=== PATIENT | female | born 1940 | race Caucasian/White ===

== ENCOUNTER 2018-10-17 14:41 | Emergency (ER) ==
[2018-10-17 14:55] VITALS: BP 112/62; TEMP 99.7; BMI 26.2
--- NOTE | 2018-10-17 15:48 | CT ---
EXAM: CT of the chest without contrast History: Cough. Comparison: CT abdomen pelvis 10/17/2018. Technique: Multiplanar CT images through the thorax were obtained without the administration of IV c ontrast Findings: Heart size is normal. No pericardial effusion. No thoracic aortic aneurysm. No patholog ically enlarged thoracic lymph nodes. Diffuse bronchial wall thickening. Bilateral lower lung micro nodules with tree-in-bud configuration. 3.6 cm irregular area of consolidation within the right lowe r lobe and smaller irregular area of consolidation within the right middle lobe. These areas of cons olidation appear to contain foci of fat. No pleural fluid and no pneumothorax. For details in the upper abdomen, please see dedicated CT abdomen pelvis done on the same day. [place] lithiasis is present and there are bilateral renal calculi and mild left hydronephrosis. No acute os seous abnormalities. Scoliosis. Degenerative changes of the spine and bilateral glenohumeral joints . Impression: 1. Irregular areas of consolidation within the right lower lobe and right middle lobe with areas of fat density suspicious for lipoid pneumonia. Follow-up chest CT is recommended in 3-6 months after t reatment to assure resolution. 2. Bilateral micronodules with tree-in-bud configuration compatible with infectious or inflammatory process. Close attention to on follow-up recommended
--- NOTE | 2018-10-17 15:58 | CT ---
Exam: CT abdomen pelvis without intravenous contrast. Comparison: None available. Reason for exam: Pain. FINDINGS: 2.4 cm right perihilar nodularity with a 1 cm nodule in the right lower lobe and a 5 mm no dule in the left lower lobe in the partially imaged lung bases. Please see CT examination of the ingrid st performed on the same day for further characterization. No pleural effusion. The liver has an ab normally lobulated contour. Old granulomas disease is seen within the spleen. Multiple stones are seen within the gallbladder. There is moderate left-sided hydronephrosis and hydroureter. Multiple stones are seen in the left re nal parenchyma measuring up to 8 mm. Mild atrophy of the right kidney without evidence of hydronephrosis or hydroureter. There is mild th ickening of the bladder wall, left more so than right. No focal small bowel dilatation or transition point. Diverticular disease is seen in the descending and rectosigmoid colon. There is marked degenerative disease of the thoracolumbar spine with intervertebral body disc space h eight loss and osteophyte formation with facet hypertrophy. Impression: 1. Multiple nodules are seen within the partially imaged lung parenchyma and perihilar region. Plea se see CT examination of the chest performed on the same day for further characterization. 2. Irregularly marginated bladder wall thickening. Imaging findings can be seen with inflammation, infection and neoplasia. Further evaluation is recommended. 3. Left-sided hydronephrosis and hydroureter. Recommend further evaluation. 4. Left-sided nephrolithiasis measuring up to 8 mm. 5. Cholelithiasis and diverticulosis. 6. Marked degenerative findings in the thoracolumbar spine
--- NOTE | 2018-10-17 16:25 | ED.PDOC ---
General ED Provider: Dr. UMANG REINOSO Chief Complaint: Nausea/Vomiting Stated Complaint: vomiting , diarrhea Time Seen by Physician: 15:00 Mode of Arrival: Ambulance Information Source: Patient Exam Limitations: No limitations Primary Care Provider: MAVERICK BUNCH Nursing and Triage Documentation Reviewed and Agree: Yes Does patient meet sepsis criteria?: No If yes, has appropriate treatment been initiated?: No System Inflammatory Response Syndrome: Not Applicable Sepsis Protocol: For patient's 13 years and over: Temp is 96.8 and below OR 101 and greater Pulse >90 BPM Resp >20/minute Acutely Altered Mental Status Are patient's symptoms suggestive of a new infection, such as: -Pneumonia -Skin, Soft Tissue -Endocarditis -UTI -Bone, Joint Infection -Implantable Device -Acute Abdominal Infection -Wound Infection -Meningitis -Blood Stream Catheter Infection -Unknown GI Complaint Exam - Vomiting/Diarrhea Complaint/Exam Onset/Duration: today Symptoms Are: Resolved Episodes of Vomiting over last 24 Hours: 1 Episodes of Diarrhea Over Last 24 Hours: 2 Initial Severity: Mild Current Severity: None Character of Vomiting: Reports: Non-bilious Aggravating: Reports: None Alleviating: Reports: None Associated Signs and Symptoms: Denies: Dizziness, Light-headedness, Melena, Hematemesis, Fever, Abdominal pain, Cramping Surgical Obstruction Risk Factors: Reports: None Related Surgical History: Reports: None Abdominal Findings: Present: None Review of Systems - Review Of Systems Constitutional: Reports: No symptoms Eyes: Reports: No symptoms Ears, Nose, Mouth, Throat: Reports: No symptoms Respiratory: Reports: No symptoms Cardiac: Reports: No symptoms GI: Reports: Diarrhea, Vomiting : Reports: No symptoms Musculoskeletal: Reports: No symptoms Skin: Reports: No symptoms Neurological: Reports: No symptoms Endocrine: Reports: No symptoms Hematologic/Lymphatic: Reports: No symptoms All Other Systems: Reviewed and Negative Past Medical History - Past Medical History Previously Healthy: Yes Endocrine: Reports: None Cardiovascular: Reports: None Respiratory: Reports: None Hematological: Reports: None Gastrointestinal: Reports: None Genitourinary: Reports: None Neuro/Psych: Reports: None Musculoskeletal: Reports: None Cancer: Reports: None Last Menstrual Period: n/a - Surgical History General Surgical History: Reports: None - Family History Family History: Reports: None - Social History Smoking Status: Never smoker Hx Substance Use: No Alcohol Screening: None Physical Exam - Physical Exam Appearance: Well-appearing, No pain distress, Well-nourished Eyes: JAMSHID, EOMI, Conjunctiva clear ENT: Ears normal, Nose normal, Oropharynx normal Respiratory: Airway patent, Breath sounds clear, Breath sounds equal, Respirations nonlabored Cardiovascular: RRR, Pulses normal, No rub, No murmur GI/: Soft, Nontender, No masses, Bowel sounds normal, No Organomegaly Musculoskeletal: Normal strength, ROM intact, No edema, No calf tenderness Skin: Warm, Dry, Normal color Neurological: Sensation intact, Motor intact, Reflexes intact, Cranial nerves intact, Alert, Oriented Psychiatric: Affect appropriate, Mood appropriate Critical Care Note - Critical Care Note Total Time (mins): 0 Course - Course Hematology/Chemistry: 10/17/18 15:14 10/17/18 15:14 Orders, Labs, Meds: Lab Review 10/17/18 10/17/18 10/17/18 15:00 15:14 15:14 WBC 13.87 H RBC 5.13 Hgb 14.6 Hct 47.1 H MCV 91.8 MCH 28.5 MCHC 31.0 L RDW Coeff of Nayely 13.7 Plt Count 207 Immature Gran % (Auto) 0.3 Neut % (Auto) 92.7 Lymph % (Auto) 1.9 L [place] % (Auto) 4.3 Eos % (Auto) 0.5 Baso % (Auto) 0.3 Immature Gran # (Auto) 0.0 Neut # (Auto) 12.9 H Lymph # (Auto) 0.3 L [place] # (Auto) 0.6 Eos # (Auto) 0.1 Baso # (Auto) 0.0 Sodium 138.1 Potassium 4.33 Chloride 106.6 Carbon Dioxide 20.6 L Anion Gap 15.23 BUN 25.8 H Creatinine 1.20 Estimated GFR (MDRD) 43.00 BUN/Creatinine Ratio 21.50 Glucose 123.0 H Lactic Acid Calcium 9.17 Total Bilirubin 0.55 AST 24.3 ALT 17.8 Alkaline Phosphatase 105.2 Total Protein 6.96 Albumin 4.18 Globulin 2.78 Albumin/Globulin Ratio 1.50 Amylase 102.4 Lipase 101.5 Procalcitonin Influ A Molecular Assay Negative by naat Influ B Molecular Assay Negative by naat 10/17/18 10/17/18 15:14 15:14 WBC RBC Hgb Hct MCV MCH MCHC RDW Coeff of Nayely Plt Count Immature Gran % (Auto) Neut % (Auto) Lymph % (Auto) [place] % (Auto) Eos % (Auto) Baso % (Auto) Immature Gran # (Auto) Neut # (Auto) Lymph # (Auto) [place] # (Auto) Eos # (Auto) Baso # (Auto) Sodium Potassium Chloride Carbon Dioxide Anion Gap BUN Creatinine Estimated GFR (MDRD) BUN/Creatinine Ratio Glucose Lactic Acid 1.24 Calcium Total Bilirubin AST ALT Alkaline Phosphatase Total Protein Albumin Globulin Albumin/Globulin Ratio Amylase Lipase Procalcitonin 0.07 Influ A Molecular Assay Influ B Molecular Assay Orders Category Date Time Status EKG-(ED ONLY) Stat CARDIO 10/17/18 14:49 Completed AMYLASE Stat LAB 10/17/18 15:14 Completed BLOOD CULTURE (ED ONLY) Stat LAB 10/17/18 15:14 Received CBC W/ AUTO DIFF Stat LAB 10/17/18 15:14 Completed COMPREHENSIVE METABOLIC PANEL Stat LAB 10/17/18 15:14 Completed FLU A/B MOLECULAR Stat LAB 10/17/18 15:00 Completed LACTIC ACID Stat LAB 10/17/18 15:14 Completed LIPASE Stat LAB 10/17/18 15:14 Completed MOLECULAR GROUP A STREP Stat LAB 10/17/18 15:00 Completed PROCALCITONIN Stat LAB 10/17/18 15:[address] ABDOMEN/PELVIS WO CONTRAST Stat RADS 10/17/18 15:[address] CHEST W/O CONTRAST Stat RADS 10/17/18 14:49 Completed Vital Signs: Temp Pulse Resp BP Pulse Ox 10/17/18 14:42 99.7 F H 85 20 112/62 95 Departure - Departure Time of Disposition: 16:26 Disposition: HOME SELF-CARE Discharge Problem: Nausea, Vomiting, Pulmonary nodule Instructions: Pulmonary Nodules (ED) Condition: Good Pt referred to PMD for follow-up: Yes IPMP verified?: No Additional Instructions: Please call your Family Physician as soon as possible to schedule a follow-up appointment.there are findings on the ct scan recommendations are that the pt get a repeat scan in a few months to be exact less than 6 months time Allergies/Adverse Reactions: Allergies Sulfa (Sulfonamide Antibiotics) Adverse Reaction (Verified 10/17/18 15:59) Home Medications: Ambulatory Orders Aspirin 81 mg PO DAILY 10/17/18 Atorvastatin Calcium [Lipitor] 40 mg PO BEDTIME 10/17/18 Cranberry Fruit Concentrate [Cranberry] 450 mg PO TID 10/17/18 Docusate Sodium [Dok] 100 mg PO DAILY 10/17/18 Escitalopram Oxalate 10 mg PO BEDTIME 10/17/18 Famotidine 20 mg PO BEDTIME 10/17/18 Ferrous Sulfate 325 mg PO DAILY 10/17/18 Loratadine [Claritin] 10 mg PO DAILY 10/17/18 Melatonin 10 mg PO BEDTIME 10/17/18 Mineral Oil 15 ml PO PRN PRN 10/17/18 Multivitamin 1 cap PO DAILY 10/17/18 Polyvinyl Alcohol [Artificial Tears] 2 drop OP BEDTIME 10/17/18 Polyvinyl Alcohol [Artificial Tears] 2 drop OP Q6HR PRN 10/17/18 Simethicone 2 tab PO BID 10/17/18 Simethicone 125 mg PO Q4H PRN 10/17/18 Disposition Discussed With: Patient (nuring home )
== END 2018-10-17 17:59 | disposition home or self-care (01) ==
LOC: ED 14:41
DX: R11.2 Nausea with vomiting, unspecified (principal); R19.7 Diarrhea, unspecified; R91.1 Solitary pulmonary nodule; N20.0 Calculus of kidney; Z79.899 Other long term (current) drug therapy
CPT/HCPCS: 36415; 80053; 82150; 83605; 83690; 84145; 85025; 87040; 87502; 87651; 93005; 93010; 99283

== ENCOUNTER 2019-02-19 16:19 | Inpatient (IN) ==
[2019-02-19] MEDS: CALMOSEPTINE OINTMENT TP SCH ×2 (17:10→20:25)
[2019-02-19 17:12] VITALS: BMI 26.9
[2019-02-19] MEDS ORDERED: ARTIFICIAL TEARS OPTH SOL OP PRN (17:48)
[2019-02-19] MEDS ORDERED: LIPITOR ONE (20:06)
[2019-02-19] MEDS ORDERED: LEXAPRO ONE (20:06)
[2019-02-19] MEDS: ARTIFICIAL TEARS OPTH SOL OP SCH (20:24)
[2019-02-19] MEDS ORDERED: ROCEPHIN 2 GM in SODIUM CHLORIDE 100 ML IV SCH (20:30)
[2019-02-19] MEDS ORDERED: ROCEPHIN ONE (20:47)
[2019-02-19] MEDS: D5%-1/2NS-KCL 20 MEQ/L IV SOL 1,000 ML IV SCH (20:49)
[2019-02-19] MEDS ORDERED: LEXAPRO PO SCH (21:00)
[2019-02-19] MEDS ORDERED: NON-FORMULARY MEDICATION (Atorvastatin Calcium [Lipitor] 40 MG) PO SCH (21:00)
[2019-02-19] MEDS ORDERED: SIMETHICONE PO SCH (21:00)
[2019-02-19] MEDS ORDERED: ZITHROMAX 500 MG in SODIUM CHLORIDE 250 ML IV SCH (21:00)
[2019-02-19] MEDS ORDERED: TYLENOL PO STA (21:19)
[2019-02-20] MEDS: ROCEPHIN 2 GM in SODIUM CHLORIDE 50 ML IV SCH (08:53)
[2019-02-20] MEDS: COLACE PO SCH (08:53)
[2019-02-20] MEDS: ASPIRIN CHEWABLE PO SCH (08:53)
[2019-02-20] MEDS: CALMOSEPTINE OINTMENT TP SCH ×2 (08:54→20:16)
[2019-02-20] MEDS: MYLICON PO SCH ×2 (08:54→20:16)
[2019-02-20] MEDS: D5%-1/2NS-KCL 20 MEQ/L IV SOL 1,000 ML IV SCH (11:56)
[2019-02-20] MEDS: ROBITUSSIN DM SYRUP PO PRN (13:24)
[2019-02-20] MEDS ORDERED: AMBIEN PO PRN (20:09)
[2019-02-20] MEDS: ARTIFICIAL TEARS OPTH SOL OP SCH (20:15)
[2019-02-20] MEDS: ZITHROMAX 500 MG in SODIUM CHLORIDE 250 ML IV SCH (20:15)
[2019-02-20] MEDS ORDERED: LIPITOR PO SCH (21:00)
[2019-02-21] MEDS: D5%-1/2NS-KCL 20 MEQ/L IV SOL 1,000 ML IV SCH (01:27)
[2019-02-21] MEDS: ASPIRIN CHEWABLE PO SCH (08:20)
[2019-02-21] MEDS: MYLICON PO SCH (08:21)
[2019-02-21] MEDS: COLACE PO SCH (08:21)
[2019-02-21] MEDS: CALMOSEPTINE OINTMENT TP SCH (08:22)
[2019-02-21] MEDS: ROCEPHIN 2 GM in SODIUM CHLORIDE 50 ML IV SCH (09:02)
[2019-02-21] MEDS ORDERED: ROCEPHIN 2 GM in SODIUM CHLORIDE 50 ML IV STA (13:20)
[2019-02-21] MEDS ORDERED: ZITHROMAX 500 MG in SODIUM CHLORIDE 250 ML IV STA (13:21)
[2019-02-21 13:25] VITALS: BP 138/90; TEMP 98.3
[2019-02-21] MEDS: ZITHROMAX 500 MG in SODIUM CHLORIDE 250 ML IV SCH (13:30)
[2019-02-21] MEDS: ROBITUSSIN DM SYRUP PO PRN (17:01)
[2019-02-22] MEDS ORDERED: ASPIRIN CHEWABLE PO SCH (08:00)
--- NOTE | 2019-03-30 11:40 | HP ---
DATE OF SERVICE: 02/19/19 CHIEF COMPLAINT: Cough, fever, chest x-ray showing pneumonia right lower lobe. HISTORY OF PRESENT ILLNESS: The patient could not provide a very good history. The patient however claimed that she had been coughing for some time and the fpc had informed my office with regards to the cough, which is becoming progressive and persistent. Questioned about fever. I ordered a chest x-ray, two view, and the chest x-ray did show right lower lobe infiltrate , probably pneumonia. Because of the pneumonic process on the x-ray and cough and fever, this patient was admitted to the hospital for treatment. 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 This patient sometimes is legible and sometimes difficult to understand. The patient had history of anemia, hypertension, GERD and osteoarthritis. FAMILY HISTORY: The patient is unable to provide. SOCIAL HISTORY: The patient is single and had been in the [facility]pc, [facility], for sometime. Mr. Quintin Almanza is her guardian. We will need to ask the fpc whether this is a state guardianship or relative. The patient never did smoke. MEDICATIONS: Prior to this admission: Lipitor 40 mg daily Ferrous sulfate 325 mg daily Lexapro 10 mg daily Docusate sodium 100 mg capsule daily Artificial tears two drops every 6 hours prn to both eyes and at bedtime Claritin 10 mg daily Aspirin 81 mg daily Simethicone 125 mg capsule, two twice daily Mineral oil 15 cc daily prn Tussin 10 cc every 4 hours prn for cough Vitamin D3 50,000 unit capsule every other week ALLERGIES: The patient is allergic to sulfa. REVIEW OF SYSTEMS: CONSTITUTIONAL: The patient is alert and complaining of cough, otherwise the rest of the systems review are not accomplished. The patient is not able to answer them well. PHYSICAL EXAMINATION: GENERAL: We have a 78 year old female admitted to the hospital because of right lower pneumonia by x-ray, but had been complaining of cough for sometime with low grade temperature. No cyanosis. VITAL SIGNS: On admission, temperature 99.2 orally, pulse 68, blood pressure left 142/68, right 129/82, respiratory rate 14, oxygen saturation 95 at room air. She is 5'2", 147 pounds and 0.77 ounces. HEAD: Unremarkable. Scalp with no active dermatitis. Face symmetrical and equal. No obvious facial weakness. EYES: Pupils equal/reactive to light. Conjunctivae pale. Sclerae not icteric. MOUTH: The patient has constant movement of the tongue, licking, slightly similar to an extrapyramidal tract reaction. THROAT: No inflammation, tumors or exudate. NECK: No masses. No bruit. No tenderness. No rigidity. CHEST: Symmetrical and equal with good expansion. LUNGS: Breath sounds are heard in both sides with rales on the right lower lobe posteriorly. No expiratory wheezing. HEART: Audible and regular with good tones. No murmurs. ABDOMEN: Soft with no remarkable tenderness. No guarding. Bowel sounds are active. EXTERNAL GENITALIA: Not examined. RECTAL AND PELVIC: Not performed. LOWER EXTREMITIES: Essentially symmetrical and equal with no significant edema. Pedal pulses present. UPPER EXTREMITIES: Essentially symmetrical and equal with some weakness on the left. ASSESSMENT: 1. RIGHT LOWER LOBE PNEUMONITIS. 2. HISTORY OF CVA WITH LEFT HEMIPARESIS 3. HISTORY OF HYPERTENSION 4. HISTORY OF PREVIOUS PNEUMONIA 5. HISTORY OF PARANOID PERSONALITY DISORDER 6. GERD TIME SPENT: GREATER THAN 65 MINUTES MTDD
--- NOTE | 2019-04-02 11:27 | DS ---
DATE OF SERVICE: 02/21/2019 PATIENT IDENTIFICATION: 78 year old female , resident of [facility], had been complaining of cough and maybe fever. The chest x-ray did show right lower lobe pneumonitis. This patient was then admitted to the hospital because of the pneumonia. She had a previous history of pneumonia. The patient had a previous CVA with left hemiparesis with movement of the tongue similar to an extrapyramidal tract reaction, but minimal. HOSPITAL COURSE: The patient is alert, but not oriented to situations. LUNGS: The lungs have rales on the right lower lobe area. No wheezing. Breath sounds are somewhat diminished. HEART: Audible and regular. ABDOMEN: Unremarkable. The CBC showed marked mild to moderate leukocytosis. Arterial blood gases showed normal pH at 7.362, but closer to the lower normal of 7.35. Oxygen saturation 92 at room air. PO2 66, HCO3 low at 18.1 and total CO2 19, again below normal. Base excess -7. Blood cultures obtained were negative. Urinalysis mixed growth. No ID done. MRSA screen positive. The patient was given Rocephin 2 grams IV daily and Zithromax 500 mg daily. The patient's CBC on the following day, 02/20/2019, showed a marked decline of the WBC to 10,840 from 16,060. The RBC, hemoglobin and hematocrit declined secondary to dilution with the IV fluids. Blood sugar remained slightly elevated from admission to the next day. The lungs still has rales on the right base. No wheezing. Vital signs on 02/21/2019 at 1:23 p.m. showed a temperature of 98.3, orally. Pulse 83, blood pressure 138/90, respiratory rate 20, oxygen saturation 96 at room air. The patient late in the evening of 02/20/2019 did spike a temperature of 100.4 and business support 02/21/2019 temperature was 98.9. The patient had 75% of breakfast and 50% of lunch. The patient had completed three doses of Zithromax at 500 mg. She also received three doses of Rocephin 2 grams each time. PLAN: The patient is discharged with a prescription of Omnicef 300 mg twice a day for five days. This patient should have a repeat chest x-ray in 5 days. She should resume all of her previous medications, as well as activity. FINAL DIAGNOSES: 1. RIGHT LOWER LOBE PNEUMONITIS, IMPROVED 2. HISTORY OF CVA WITH RESIDUAL LEFT HEMIPARESIS 3. HISTORY OF HYPERTENSION, CONTROLLED 4. HISTORY OF GERD 5. HISTORY OF SEVERE ANEMIA 6. HISTORY OF DEPRESSION ON SSRI PROGNOSIS: Guarded. TIME SPENT: GREATER THAN 30 MINUTES MTDD
== END 2019-02-21 17:07 | DRG 204 ==
LOC: MEDSURG B 16:19
PROVIDERS: ADMIT General Practice; ATTEND General Practice
DX: R05 Cough (principal); G81.94 Hemiplegia, unspecified affecting left nondominant side; R50.9 Fever, unspecified; I10 Essential (primary) hypertension; K21.9 Gastro-esophageal reflux disease without esophagitis; F32.9 Major depressive disorder, single episode, unspecified; Z86.73 Personal history of transient ischemic attack (TIA), and cerebral infarction without residual deficits
CPT/HCPCS: 36415; 80053; 81001; 82803; 83605; 84145; 85025; 86710; 87040; 87081; 87086; 93005; 93010